=== PATIENT | male | born 1975 | race African-American/Black ===

== ENCOUNTER 2018-11-12 14:16 | Inpatient (IN) | payer SELFPAY ==
[2018-11-12] MEDS ORDERED: Ketorolac Tromethamine 60 MG/2 ML VIAL ONE (14:33)
[2018-11-12 15:20] LABS: Anion Gap 13 mmol/L (10-20); BUN (Urea Nitrogen) 15 mg/dL (8.9-20.6); Calc. Creatinine Clearance 0 mL/min (70-130); Calcium 9.5 mg/dL (7.8-10.44); Carbon Dioxide 20 mmol/L (22-29); Chloride 110 mmol/L (98-107); Estimated GFR-MDRD Greater than 90; Glucose 96 mg/dL (70-105); Potassium 4.3 mmol/L (3.5-5.1); Sodium 139 mmol/L (136-145)
[2018-11-12 15:43] LABS: CKMB 1.7 ng/mL (0-6.6)
[2018-11-12] MEDS ORDERED: Senokot S 8.6-50 MG TAB PO PRN (17:13)
[2018-11-12] MEDS ORDERED: HYDROcodone/Acetaminophen 5/325 mg Tablet PO PRN (17:13)
[2018-11-12] MEDS ORDERED: Acetaminophen 325 MG TAB PO PRN (17:13)
[2018-11-12] MEDS ORDERED: Lorazepam 1 MG TAB PO PRN (17:18)
[2018-11-12 18:18] LABS: Troponin I 0.052 ng/mL (< 0.028)
[2018-11-12 18:33] LABS: CKMB 1.6 ng/mL (0-6.6)
[2018-11-12] MEDS: Famotidine 20 MG TAB PO SCH (20:28)
[2018-11-12] MEDS: Enoxaparin Sodium 100 MG/ML SYRINGE SC SCH (20:28)
[2018-11-12] MEDS: Nicotine 14 MG PATCH TD SCH (20:28)
[2018-11-12 21:11] VITALS: BMI 31.9
[2018-11-12 21:28] LABS: Troponin I 0.077 ng/mL (< 0.028)
[2018-11-12] MEDS: Diltiazem 125 MG in Sodium Chloride 0.9% 100 ML IVPB SCH (22:06)
--- NOTE | 2018-11-13 02:44 | HP ---
PRIMARY CARE PROVIDER: None. CHIEF COMPLAINT: Shortness of breath. HISTORY OF PRESENT ILLNESS: The patient is a 43-year-old male who came to the ER complaining of shortness of breath for 7 days. Reports feeling heart palpitations this morning and that is what brought him into the ER. The patient denies any other associated symptoms. No chest pain. No cough. No diaphoresis. PAST MEDICAL HISTORY: Significant for murmur, the patient said he has had since he was young with no followup. PAST SURGICAL HISTORY: Unremarkable. SOCIAL HISTORY: The patient says he drinks 6 beers daily. Smokes one pack per day x25 years. Denies any illicit drug use. FAMILY HISTORY: He denies any significant family history. PSYCHIATRIC HISTORY: Unremarkable. ALLERGIES: THE PATIENT SAYS HE HAS NO KNOWN ALLERGIES. HOME MEDICATIONS: The patient is not taking any home medications at this time. REVIEW OF SYSTEMS: VITAL SIGNS: Temperature 98.1, blood pressure 105/78, pulse 79, respirations 22, the patient is 96% on room air. CONSTITUTIONAL: Denies fever or chills. General malaise. HEENT: Denies sore throat. RESPIRATORY: Denies cough. Significant for shortness of breath. CARDIAC: Denies chest pain. Reports palpitation. Denies dyspnea on exertion. GI: Denies abdominal pain, nausea, vomiting, diarrhea. EXTREMITIES: Denies any lower extremity swelling or pain. NEUROLOGIC: Denies headache. Denies dizziness. SKIN: Denies any new rashes. PERTINENT LABORATORY DATA: Sodium 139, potassium 4.3, chloride 110, carbon dioxide 20, anion gap 13, BUN is 15, creatinine is 1.02. Estimated GFR greater than 90%. Glucose is 96, calcium 9.5. Troponin, first troponin was 0.068, second was 0.052, and third troponin was 0.064. CK-MB 1.7, and second CK-MB was 1.6. TSH 1.0248. EKG showed Afib. ASSESSMENT AND PLAN: 1. Atrial fibrillation. This is new onset atrial fibrillation for the patient. The patient was placed on a Cardizem drip at 10 mL per hour and given a bolus of 20 mg IV push. The patient was given 1 mg/kg of Lovenox. We are going to do Cardiology consults. 2. Gastrointestinal and deep venous thrombosis prophylaxis. 3. Hospital course is dependent on clinical findings. PHYSICAL EXAMINATION: VITAL SIGNS: Temperature 98.1, blood pressure 105/78, pulse 79, respiratory rate is 22. The patient is 96% on room air. CONSTITUTIONAL: Head is atraumatic and normocephalic. HEENT: Eyes A. Nose, nares are clear. Throat, posterior oropharynx is clear. Uvula midline. NECK: Supple. Trachea midline. No thyromegaly. RESPIRATORY: Lungs clear to auscultation bilaterally. Good air movement bilaterally. No adventitious lung sounds. No rales, rhonchi, or wheezes heard. CARDIOVASCULAR: S1, S2 are appreciated. No murmurs, rubs, or gallops. GI: Abdomen is soft, nontender. No hepatosplenomegaly. EXTREMITIES: Pedal pulses 2+. No edema. NEUROLOGICAL: Cranial nerves 2 to 7 intact. Strength 5/5 to the extremities. Sensation intact. Nonfocal exam. INTEGUMENTARY: No rashes. No new lesions. Job ID: [id number]
[2018-11-13 05:47] LABS: #Basophils 0.1 thou/uL (0.0-0.2); #Eosinphils 0.2 thou/uL (0.0-0.7); #Lymphocytes 2.7 thou/uL (1.20-3.40); #Monocytes 0.8 thou/uL (0.11-0.59); #Neutrophils 3.9 thou/uL (1.40-6.50); %Basophils 1.1 % (0.0-1.0); %Eosinophils 2.6 % (0.0-10.0); %Lymphocytes 35.6 % (21.0-51.0); %Monocytes 10.3 % (0.0-10.0); %Neutrophils 50.3 % (42.0-75.0); Hemoglobin 13.4 g/dL (14.0-18.0); Mean Corpuscular HGB CONC 32.3 g/dL (32.0-36.0); Mean Corpuscular Hemoglobin 23.3 pg (27.0-31.0); Mean Corpuscular Volume 72.1 fL (78.0-98.0); Mean Platelet Volume 8.3 fL (7.4-10.4); Platelet Count 262 thou/uL (130-400); Red Blood Cell (RBC) Count 5.73 mill/uL (4.70-6.10); White Blood Cell (WBC) Count 7.7 thou/uL (4.8-10.8)
[2018-11-13 06:03] LABS: ALT (SGPT) 98 U/L (8-55); AST (SGOT) 43 U/L (5-34); Albumin 4.2 g/dL (3.5-5.0); Alkaline Phosphatase 56 U/L (40-150); Anion Gap 11 mmol/L (10-20); BUN (Urea Nitrogen) 17 mg/dL (8.9-20.6); Bilirubin, Total 0.9 mg/dL (0.2-1.2); Calc. Creatinine Clearance 121 mL/min (70-130); Calcium 9.5 mg/dL (7.8-10.44); Carbon Dioxide 22 mmol/L (22-29); Chloride 111 mmol/L (98-107); Estimated GFR-MDRD 90; Globulin 2.4 g/dL (2.4-3.5); Glucose 114 mg/dL (70-105); Potassium 4.2 mmol/L (3.5-5.1); Protein, Total 6.6 g/dL (6.0-8.3); Sodium 140 mmol/L (136-145)
[2018-11-13] MEDS: Enoxaparin Sodium 100 MG/ML SYRINGE SC SCH ×2 (08:55→20:10)
[2018-11-13] MEDS: Famotidine 20 MG TAB PO SCH ×2 (08:57→20:10)
[2018-11-13] MEDS ORDERED: Digoxin 0.5 MG/2 ML AMP SLOW IVP SCH (11:00)
--- NOTE | 2018-11-13 13:43 | PRG ---
DATE OF SERVICE: 11/13/2018 SUBJECTIVE: The patient is seen and examined at the bedside. He is feeling good. He does not have much complaints to offer. He does not have any chest pain. OBJECTIVE: VITAL SIGNS: Blood pressure is 151/97, pulse is 65, temperature is 98.0, respirations are 18, O2 saturation is 93% on room air. HEENT: His head is atraumatic and normocephalic. Eyes are PERRLA. Sclerae are nonicteric. Oral mucosa is moist. NECK: Supple. No lymphadenopathy. Thyroid is not palpable. LUNGS: Clear. HEART: S1 and S2. Irregularly irregular. No S3. No S4. ABDOMEN: Soft, nontender. Bowel sounds are present. No organomegaly. EXTREMITIES: No clubbing, cyanosis, or edema. NEUROLOGICAL: He is alert and oriented x4. There is no any motor or sensory deficit. LABORATORY DATA: Labs showed white count of 7.7, hemoglobin 13.4, hematocrit 41.3, platelet count is 262,000. Sodium of 140, potassium 4.2, chloride 111, CO2 of 22, BUN 17, creatinine 1.08, glucose 114, AST 43, ALT 98, alkaline phosphatase 56. Troponins 0.068, 0.064, and 0.077. Normal CK-MBs and normal rest of the chemistry. IMPRESSION: 1. New onset atrial fibrillation, most likely related to alcohol and drugs. The patient is on Cardizem drip. His rate is controlled at this point. He was started on Lovenox 1 mg/kg q.12 hours subcutaneously. Cardiology is seeing the patient. Echo is supposed to be done and read. 2. Elevated liver function test with typical 2:1 ratio of ALT to AST typical for alcoholic liver disease. 3. Elevated troponins secondary to new onset atrial fibrillation most likely. 4. Microcytic anemia. Check his iron studies and he might need to have scoping done for now, we will continue current regimen and we will make sure that he is not bleeding internally since he is on high dose of Lovenox. Job ID: [id number]
--- NOTE | 2018-11-13 14:37 | CON ---
DATE OF CONSULTATION: 11/13/2018 INDICATION FOR CONSULTATION: A 43-year-old patient who was seen in the emergency room yesterday in [place] and was noted to be in atrial fibrillation with rapid ventricular response, was sent to our facility. 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 He noticed lately he has been having some coughing. He noticed that his heart rate was irregular and fast and became short of breath. He had no chest pain. He was in the emergency room, was noted to be in atrial fibrillation. He presented here. He does have a history of tobacco abuse, but no other risk factors for coronary artery disease. His EKG did not show any evidence of ischemia. PAST MEDICAL HISTORY: His past medical history is unremarkable for any operations or illnesses. He has been otherwise healthy person until he developed the atrial fibrillation with the rapid heart rate. He did not have any significant evidence of ischemia. He does have decreased R-wave progression; however, in V1 through V3 and some nonspecific T-wave changes. His thyroid function appeared to be normal. His cardiac enzymes were indeterminate, but troponin I was 0.068 and has increased up to 0.077. This maybe due to demand ischemia associated with the tachycardia and it could be diagnosed as a non-ST segment elevation myocardial infarction type 2. Otherwise, he has remained stable. Today, he is feeling better. He has had some episodes of intermittent sinus rhythm and then converted back to the atrial fibrillation. At times, appears to be possibly atrial flutter. He is on IV diltiazem and the rate is under relatively good control at this time. We will continue these medications for the time being. His blood pressure also was somewhat elevated. We will need to control the blood pressure. We will increase the diltiazem. We will also add medicines as needed for the hypertension. SOCIAL HISTORY: He has a significant other. He has 1 child who is 8-year-old with no heart problems. He smoked a pack a day for 25 years. Continues to smoke. Drinks 6 to 8 beers a day, but drink more in the weekend. He works in a service station. FAMILY HISTORY: Unremarkable for any early heart disease. MEDICATIONS: Prior to admission include TheraFlu, Mucinex, and NyQuil. ALLERGIES: NONE. REVIEW OF SYSTEMS: A 12-point review of systems is unremarkable, except for the history of smoking. PHYSICAL EXAMINATION: GENERAL: Reveals a very pleasant, well-developed, well-nourished gentleman, in no acute distress. VITAL SIGNS: His blood pressure earlier was 135/76, this has increased up to 170/94; heart rate at the time of blood pressure 135, was 108, it is now down to 67, which still shows atrial fibrillation. The rate is under good control. He is afebrile. Respiratory rate is 18. HEENT: Shows the head to be normocephalic and atraumatic. NECK: Carotid pulses are present. There are no bruits. CHEST: Clear to auscultation without rales, rhonchi, or wheezing. CARDIOVASCULAR: Does reveal an irregular rhythm at this time, somewhat tachycardic, but no gross murmurs, heaves, thrills, bruits, or rubs are noted. ABDOMEN: Soft, flat, and nontender. Positive bowel sounds are present. No organomegaly, masses, or tenderness noted. EXTREMITIES: Showed no clubbing, cyanosis, or edema. Pedal pulses are present. NEUROLOGIC: He appears to be intact. He has normal strength and normal tone. SKIN: Warm and dry. IMAGING STUDIES: EKG shows an atrial fibrillation and possible atrial flutter, decreased R-wave progression in V1 through V3, which could indicate old anterior myocardial infarction with some T-wave inversions in the lateral leads as well as inferiorly. His cardiac enzymes are also slightly indeterminate. IMPRESSION: 1. Atrial fibrillation and possibly flutter with a rapid ventricular response. The etiology of the atrial flutter, I have discussed with him about the alcohol. If he has significant amount of alcohol over the weekend more than usual and also was taking NyQuil and TheraFlu, this may have caused him to develop the atrial fibrillation. He has gone in and out of the atrial fibrillation at this time. We will continue the diltiazem. I will obtain an echocardiogram for evaluation of the left ventricular systolic function and chamber dimensions. 2. History of tobacco abuse. He has been absolutely stable. He needs to stop smoking. 3. Increased alcohol use. He also need to stop drinking. I suggest that he drink maybe 1 to 2 beers a day maximum. 4. History of recent coughing. This maybe due to congestive heart failure. However, we will need to obtain further evaluation by echocardiogram. For the time being, we will continue the diltiazem. If he has been found to have more episodes of flutter, he may need to undergo an ablation for the atrial flutter and then continue medications for the atrial fibrillation. If once we evaluate the echocardiogram, then further recommendations will follow. He may need to eventually be seen by Electrophysiology for a possible ablation. He also at some point in time, will need to undergo stress testing to rule out evidence of underlying ischemia depending on the results of the echocardiogram. He could either undergo stress testing or may actually he need to undergo cardiac catheterization for further evaluation. 5. Daily marijiuna use and history of cocaine abuse in the past. Request urine drug screen. 6. Abnormal EKG : possible old anterior WI. Pt. may have CMY . Await echo results. Job ID: [id number] MTDD
[2018-11-13 15:12] LABS: Hemoglobin 13.7 g/dL (14.0-18.0)
[2018-11-13 15:30] LABS: Iron 90 ug/dL (65-175); Iron Binding Capacity, Total 438 mcg/dL (261-462)
[2018-11-13] MEDS: Carvedilol 3.125 MG TAB PO SCH (16:53)
[2018-11-13] MEDS ORDERED: Communication Order-Pharmacy FS SCH (19:00)
[2018-11-13] MEDS: Nicotine 14 MG PATCH TD SCH (20:09)
[2018-11-13] MEDS: Diltiazem 125 MG in Sodium Chloride 0.9% 100 ML IVPB SCH (22:04)
[2018-11-14] MEDS: Carvedilol 3.125 MG TAB PO SCH ×2 (06:03→17:05)
[2018-11-14] MEDS: Lisinopril 5 MG TAB PO SCH (06:03)
[2018-11-14] MEDS: Famotidine 20 MG TAB PO SCH ×2 (06:04→20:14)
[2018-11-14 06:40] LABS: #Basophils 0.1 thou/uL (0.0-0.2); #Eosinphils 0.1 thou/uL (0.0-0.7); #Monocytes 0.8 thou/uL (0.11-0.59); #Neutrophils 6.9 thou/uL (1.40-6.50); %Basophils 0.8 % (0.0-1.0); %Eosinophils 1.4 % (0.0-10.0); %Lymphocytes 27.4 % (21.0-51.0); %Monocytes 7.6 % (0.0-10.0); %Neutrophils 62.8 % (42.0-75.0); Hemoglobin 13.9 g/dL (14.0-18.0); Mean Corpuscular HGB CONC 32.3 g/dL (32.0-36.0); Mean Corpuscular Hemoglobin 23.6 pg (27.0-31.0); Mean Corpuscular Volume 73.1 fL (78.0-98.0); Mean Platelet Volume 8.9 fL (7.4-10.4); Platelet Count 268 thou/uL (130-400); RBC Distribution Width 14.2 % (11.5-14.5); Red Blood Cell (RBC) Count 5.88 mill/uL (4.70-6.10)
[2018-11-14 07:07] LABS: ALT (SGPT) 84 U/L (8-55); AST (SGOT) 24 U/L (5-34); Albumin 4.3 g/dL (3.5-5.0); Alkaline Phosphatase 62 U/L (40-150); Anion Gap 14 mmol/L (10-20); BUN (Urea Nitrogen) 14 mg/dL (8.9-20.6); Bilirubin, Total 1.6 mg/dL (0.2-1.2); Calc. Creatinine Clearance 119 mL/min (70-130); Calcium 9.8 mg/dL (7.8-10.44); Carbon Dioxide 22 mmol/L (22-29); Chloride 108 mmol/L (98-107); Estimated GFR-MDRD 88; Globulin 2.7 g/dL (2.4-3.5); Glucose 101 mg/dL (70-105); Potassium 3.9 mmol/L (3.5-5.1); Sodium 140 mmol/L (136-145)
--- NOTE | 2018-11-14 07:57 | CON ---
DATE OF CONSULTATION: 11/13/2018 ADDENDUM: Please add an addendum to the H and P. Mr. Guadalupe admits to using marijuana on a daily basis. He did have a history of using cocaine in the past of several years ago. This may be the etiology of the abnormal EKG. He could possibly suffered an myocardial infarction in the past and had been unaware of it. The echocardiogram is still pending. We will review this and further recommendations will follow. Job ID: [id number]
[2018-11-14] MEDS: Diltiazem 125 MG in Sodium Chloride 0.9% 100 ML IVPB SCH (10:07)
--- NOTE | 2018-11-14 14:30 | PRG ---
DATE OF SERVICE: 11/14/2018 SUBJECTIVE: The patient is seen and examined at the bedside. He is feeling better. There was no any unexpected events overnight. OBJECTIVE: VITAL SIGNS: Blood pressure is 123/78, pulse is 85, temperature is 98.3, respiratory rate is 18, O2 saturation is 95% on room air. HEENT: His head is atraumatic and normocephalic. Eyes are PERRLA. Sclerae are nonicteric. Oral mucosa is moist. NECK: Supple. LUNGS: Clear except for the bases, where he has a few crackles bilaterally. No wheezing. HEART: S1, S2, somewhat distant. No S3. No S4. Somewhat irregular. No murmur. ABDOMEN: Soft and nontender. EXTREMITIES: No clubbing, cyanosis, or edema. NEUROLOGICAL: He follows my commands. He moves his all 4 extremities. There is no any sensory or motor deficits present. Cranial nerves are intact. LABORATORY DATA: Labs showed white count of 11.0, hemoglobin of 13.9, hematocrit 43.0, platelet count is 268. Sodium of 140, potassium 3.9, chloride 108, CO2 of 22, BUN 14, creatinine 1.10, glucose 101, calcium 9.8, ferritin 442.07, total iron binding capacity is 438, and iron is 90. Total bilirubin 1.6, AST 24, ALT 84, alkaline phosphatase 62, and the rest of chemistry is within normal limits. showed atrial fibrillation/flutter. Ejection fraction of the left ventricle is estimated at 15% to 20%. There is moderately increased left ventricular size and probable diastolic dysfunction, which is difficult to assess since he is in atrial fibrillation. The left atrium is moderately dilated and the right ventricular cavity is mildly enlarged and right atrium is mildly enlarged along with moderate mitral regurgitation, moderate to severe tricuspid regurgitation and mild pulmonic regurgitation. IMPRESSION: 1. New onset of atrial fibrillation and is still in atrial fibrillation. This time, he is rate controlled. He is on Cardizem drip. Cardiology will make decision about the next step, although there is some plan to get religious education teacher involved in this case. We will continue his full anticoagulation with Lovenox. 2. Elevated liver function test, which is most likely related to alcohol use. 3. Elevated troponins, most likely secondary to atrial fibrillation. 4. Microcytic anemia with iron studies suggestive of normal iron level and normal iron stores. We are still waiting for hemoglobin electrophoresis for further evaluation of his microcytic anemia. PLAN: To continue current regimen and Cardiology will make decision about the next step. Yesterday, he was started on carvedilol and lisinopril. His blood pressure is improved, and he has Nicoderm patch 14 mg daily. Job ID: [id number]
[2018-11-14 14:31] LABS: Amphetamine Not Detected (NotDetected); Barbiturates Screen Not Detected (NotDetected); Benzodiazepine Screen Detected (NotDetected); Cocaine Metabolite Screen Not Detected (NotDetected); Medtox Control Line Valid? VALID (VALID); Medtox Reader # READER 4; Methadone Not Detected (NotDetected); Methamphetamine Not Detected (NotDetected); Opiate Screen Not Detected (NotDetected); Oxycodone Screen Not Detected (NotDetected); Phencyclidine (PCP) Not Detected (NotDetected); THC/Cannabinoid Screen Detected (NotDetected); Tricyclic Screen Not Detected (NotDetected)
[2018-11-14] MEDS ORDERED: Verapamil 5 MG/2 ML VIAL ONE (15:44)
[2018-11-14] MEDS ORDERED: Nitroglycerin 100MG/250ML BOT 250 ML ONE (15:44)
[2018-11-14] MEDS ORDERED: Heparin 10,000 UNITS/1 ML VIAL ONE (15:44)
--- NOTE | 2018-11-14 16:02 | PDOC.CTH ---
Cardiology Progress Note - Subjective EP PROGRESS NOTE: 11/14/18 Patient seen and evaluated. No new cardiac concerns or complaints today. Denies heart racing, palpitations, chest pain/pressure, dizziness, or passing out. No stroke like symptoms. - Objective Vital Signs Temp Pulse Resp BP Pulse Ox 11/14/18 11:21 98.3 F 85 18 123/78 95 11/14/18 07:38 98.9 F 72 18 124/78 96 11/14/18 07:35 95 Weight 216 lb 5 oz 11/13/18 11/14/18 11/15/18 06:59 06:59 06:59 Intake Total 995 Output Total 1125 Balance -130 - Physical Examination General/Neuro: alert & oriented x3, NAD Neck: carotid US brisk, no JVD present Lungs: CTA, unlabored respirations Heart: PMI normal, RRR Abdomen: NT/ND, soft - Telemetry Telemetry Rhythm: SR - Labs Result Diagrams: 11/14/18 05:57 11/14/18 05:57 Troponin/CKMB CK-MB (CK-2) 1.6 ng/mL (0-6.6) 11/12/18 17:45 Troponin I 0.077 ng/mL (< 0.028) H 11/12/18 20:48 - Assessment/Plan 1. Atrial fibrillation with RVR - coarse Afib seen on tele. 2. CHADS2-VASC: 1 (for HF) - with severely reduced EF I still recommend OAC with Eliquis 5mg PO BID 3. Systolic heart failure - EF ~20% - newly diagnosed, likely tachycardia mediated Short term amiodarone suppressing and standard heart failure management. Reassess EF in 3 months. Consider ICD if EF remains </=35%. If recurrent arrhythmias seen after amiodarone is stopped in 3-4 months, can consider ablation at that time.
[2018-11-14] MEDS ORDERED: Nitroglycerin 0.4 MG TAB (25 Tab Bottle) SL PRN (16:22)
[2018-11-14] MEDS ORDERED: Sodium Chloride 0.9% 200 ML IV PRN (16:22)
[2018-11-14] MEDS ORDERED: Acetaminophen/Codeine 30-300mg Tablet PO PRN ×2 (16:22)
[2018-11-14] MEDS ORDERED: Amiodarone 200 MG TAB PO SCH (16:30)
[2018-11-14] MEDS: Apixaban 5 MG TAB PO SCH (20:13)
[2018-11-14] MEDS: Amiodarone 200 MG TAB PO SCH (20:13)
[2018-11-14] MEDS: Nicotine 14 MG PATCH TD SCH (20:13)
[2018-11-15 07:42] VITALS: TEMP 97.7
[2018-11-15] MEDS: Apixaban 5 MG TAB PO SCH (08:10)
[2018-11-15] MEDS: Amiodarone 200 MG TAB PO SCH (08:10)
[2018-11-15] MEDS: Lisinopril 5 MG TAB PO SCH (08:10)
[2018-11-15] MEDS: Carvedilol 3.125 MG TAB PO SCH (08:10)
[2018-11-15] MEDS: Famotidine 20 MG TAB PO SCH (08:10)
--- NOTE | 2018-11-15 08:20 | PDOC.PN ---
- Subjective Encounter Start Date: 11/15/18 Encounter Start Time: 08:20 - Objective Resuscitation Status - Order Detail: 11/12/18 17:13 Resuscitation Status Routine Co-Sign Provider: Resuscitation Status: FULL: Full Resuscitation Discussed with: patient Additional comments: Mother is surrogate decision maker Vital Signs & Weight: Vital Signs (12 hours) Temp Pulse Resp BP BP BP Pulse Ox 11/15/18 07:36 97.7 F 99 20 123/88 98 11/15/18 04:00 136/91 H 11/15/18 03:43 97.9 F 61 22 H 136/91 H 97 11/14/18 23:15 98.1 F 113 H 18 116/81 116/81 97 Weight Weight 216 lb 5 oz I&O: 11/14/18 11/15/18 11/16/18 06:59 06:59 06:59 Intake Total 995 720 Output Total 1125 1040 Balance -130 -320 Result Diagrams: 11/14/18 05:57 11/14/18 05:57 Dx/Plan - Plan * . Review of Systems - Medications/Allergies Allergies/Adverse Reactions: Allergies Allergy/AdvReac Type Severity Reaction Status Date / Time No Known Allergies Allergy Unverified 11/12/18 17:56 Medications: Current Medications Acetaminophen (Tylenol) 650 mg PO Q4H PRN PRN Reason: Headache/Fever/Mild Pain (1-3) Acetaminophen/Codeine Phosphate (Tylenol #3) 1 tab PO Q4H PRN PRN Reason: Mild Pain (1-3) Acetaminophen/Codeine Phosphate (Tylenol #3) 2 tab PO Q4H PRN PRN Reason: Moderate Pain (4-6) Hydrocodone Bitart/Acetaminophen ([place] 5/325) 1 tab PO Q4H PRN PRN Reason: Moderate Pain (4-6) Amiodarone HCl (Cordarone) 400 mg PO TID [facility] Last Admin: 11/15/18 08:10 Dose: 400 mg Apixaban (Eliquis) 5 mg PO BID [facility] Last Admin: 11/15/18 08:10 Dose: 5 mg Aspirin (Ecotrin) 81 mg PO DAILY [facility] Last Admin: 11/15/18 08:10 Dose: 81 mg Carvedilol (Coreg) 3.125 mg PO BID[facility] Last Admin: 11/15/18 08:10 Dose: 3.125 mg Famotidine (Pepcid) 20 mg PO BID [facility] Last Admin: 11/15/18 08:10 Dose: 20 mg Sodium Chloride (Normal Saline 0.9%) 200 mls @ 0 mls/hr IV ONE PRN PRN Reason: SBP < 90 Stop: 11/17/18 16:23 Lisinopril (Zestril) 5 mg PO DAILY [facility] Last Admin: 11/15/18 08:10 Dose: 5 mg Lorazepam (Ativan) 1 mg PO Q4H PRN PRN Reason: Anxiety/Agitation Last Admin: 11/13/18 22:07 Dose: 1 mg Nicotine (Nicoderm Patch) 14 mg TD Q24HR [facility] Last Admin: 11/14/18 20:13 Dose: 14 mg Nitroglycerin (Nitrostat) 0.4 mg SL Q5MIN PRN PRN Reason: Chest Pain Senna/Docusate Sodium (Senokot S) 2 tab PO BIDPRN PRN PRN Reason: Constipation Sodium Chloride (Flush - Normal Saline) 10 ml IVF PRN PRN PRN Reason: Saline Flush
[2018-11-15] MEDS ORDERED: Aspirin 81 mg Enteric Coated Tablet PO SCH (09:00)
--- NOTE | 2018-11-15 09:54 | PDOC.CTH ---
Cardiology Progress Note - Subjective The pt seen and examined. No overnight events. No cardiac complaints. - Objective Vital Signs Temp Pulse Resp BP BP BP Pulse Ox 11/15/18 08:10 98 11/15/18 07:36 97.7 F 99 20 123/88 98 11/15/18 04:00 136/91 H 11/15/18 03:43 97.9 F 61 22 H 136/91 H 97 11/14/18 23:15 98.1 F 113 H 18 116/81 116/81 97 Weight 216 lb 5 oz 11/14/18 11/15/18 11/16/18 06:59 06:59 06:59 Intake Total 995 720 Output Total 1125 1040 Balance -130 -320 - Physical Examination General/Neuro: alert & oriented x3 Neck: no JVD present Lungs: CTA Heart: other: (irregular) Abdomen: soft Extremities: other: (No edema) - Telemetry Telemetry Rhythm: AFib with HR 110-120s - Labs Result Diagrams: 11/14/18 05:57 11/14/18 05:57 Troponin/CKMB CK-MB (CK-2) 1.6 ng/mL (0-6.6) 11/12/18 17:45 Troponin I 0.077 ng/mL (< 0.028) H 11/12/18 20:48 - Assessment/Plan 1. Atrial fibrillation with RVR - coarse Afib with HR 110-120s. Will increase Coreg from 3.125mg to 6.25mg BID. On Amiodarone 400mg TID since yesterday. Eliquis 5mg BID for severely reduced EF although his CHADS2-VASC is 1 (for HF). 2. Acute on Chronic Systolic HF with EF 15-20% - S/p C on 11/14/2018 with normal coronaries. Will D/c with LifeVest. 3. Anemia 4. Tobacco and ETOH abuse - smoking and ETOH cessation education given to the pt. MAR reviewed * Short term amiodarone suppressing and standard heart failure management. Reassess EF in 3 months. Consider ICD if EF remains </=35%. If recurrent arrhythmias seen after amiodarone is stopped in 3-4 months, can consider ablation at that time. * Amiodarone 400mg TID for 2wks, 400mg BID for 2wks, 200mg BID for 2wks, then 200mg qd * From Cardiac standpoint, the pt is stable to D/C home once he receive LifeVest. The pt will f/u with Dr Martinez' office within 2-4 wks. Pt. seen and eval. by me. I agree with the A/P by the FLOOR BROKER. He says that he may not be able to pay for the Life-Vest.He is stable for d/c today. He will need to f/u with my office in the next few weeks. He should also be set up with the CHF clinic. Review of Systems - Review of Systems Constitutional: reports: no symptoms reported EENTM: reports: no symptoms reported Respiratory: reports: no symptoms reported Cardiac (ROS): reports: no symptoms reported ABD/GI: reports: no symptoms reported : reports: no symptoms reported Musculoskeletal: reports: no symptoms reported
[2018-11-15] MEDS ORDERED: Amiodarone 200 MG TAB PO SCH ×3 (10:03→15:00)
[2018-11-15] MEDS ORDERED: Carvedilol 3.125 MG TAB PO SCH ×3 (10:30→17:00)
[2018-11-15 11:08] VITALS: BP 109/74
[2018-11-15 16:10] LABS: Hemoglobin A 95.8 % (96.4-98.8); Hemoglobin A2 4.2 % (1.8-3.2); Hemoglobin F 0 % (0.0-2.0); Interpretation Note: (.)
[2018-11-15] MEDS ORDERED: Carvedilol 6.25 MG TAB PO SCH (17:00)
--- NOTE | 2018-11-16 05:22 | DIS ---
DATE OF ADMISSION: 11/12/2018 DATE OF DISCHARGE: 11/15/2018 CONDITION: At the time of discharge, stable and improved. DISCHARGE DISPOSITION: Home. PRIMARY CARE PHYSICIAN: None. The patient is instructed to follow up with [facility]. DISCHARGE DIAGNOSES: 1. Atrial fibrillation with RVR. 2. Acute on chronic systolic congestive heart failure with ejection fraction of 15% to 20%. 3. Chronic anemia. 4. Alcohol, tobacco, and history of cocaine abuse. 5. Non-ischemic cardiomyopathy, suspected alcoholic. DISCHARGE MEDICATIONS: 1. Aldactone 25 mg daily. 2. Nicotine patch 14 mg daily. 3. Lisinopril 5 mg daily. 4. Carvedilol 6.25 mg p.o. b.i.d. 5. Aspirin 81 mg daily. 6. Eliquis 5 mg p.o. b.i.d. 7. Amiodarone 400 mg three times a day for two weeks, then 400 mg two times a day for two weeks, then 200 mg two times a day for two weeks, then 200 mg daily. Prescription is written as such. PROCEDURES DONE IN THE HOSPITAL: 1. Transthoracic echocardiogram which shows EF of 15% to 20% and [id number] tricuspid regurgitation, moderate mitral regurgitation, and atrial fibrillation. 2. Cardiac catheterization which shows normal coronaries, but EF of approximately 15%. IN-HOUSE CONSULTATIONS: 1. Cardiology, Dr. Martinez. 2. Electrophysiology, Dr. Melissa. HISTORY OF PRESENTING ILLNESS: Mr. Guadalupe is a 43-year-old Afro-[place] male with past medical history significant for not much except for a murmur, who smokes a pack per day for 25 years and drinks heavily beer every day, and has a history of cocaine abuse, nothing current, who came to the emergency room with complaints of shortness of breath for 7 days and palpitations on the day of presentation. In the emergency room, his troponin was 0.068 and 2nd was 0.058, 3rd was 0.064. EKG showed atrial fibrillation and heart rate was tachycardic. He was admitted with a new diagnosis of atrial fibrillation with RVR and was started on Cardizem drip and was started on Lovenox b.i.d. dosing as well. Please see admission history dictated by Pippa Faria, nurse practitioner, on 11/12/2018. Cardiology was consulted and echo was ordered. Cardiology, Dr. Martinez, saw the patient and his echo showed poor EF. He underwent cardiac catheterization which showed normal coronaries. It was thought that most likely his symptoms are due to alcoholic versus other type of nonischemic cardiomyopathy. For his atrial fibrillation, he was weaned off Cardizem drip and was started on amiodarone by Cardiology at a tapering dose. He was also started on oral anticoagulation because of extensive risk of stroke given his poor EF. He was also started on beta-earnest and lisinopril for cardiomyopathy as well as for atrial fibrillation in terms of beta blockers. With optimal medical management, his vitals became stable. He was not tachycardic anymore. Blood pressure was stable. [facility] was recommended, but unfortunately the patient was not able to afford it. [facility] customer contact representative will follow the patient up in the home setting. [facility] was consulted with regard to medication prescription help. Once that is arranged, the patient is stable for discharge. Cardiology has cleared him for discharge as well. He was also evaluated by Dr. Melissa for atrial fibrillation, who recommended Eliquis and AICD in 3 months if his EF remains less than 35. He was seen and examined prior to discharge. PHYSICAL EXAMINATION: VITAL SIGNS: This morning vital signs, temperature 97.7, pulse of 92, respirations 22, saturating 95% on room air, blood pressure 109/74. GENERAL: No acute distress. Awake, alert, and oriented x3. CHEST: Clear to auscultation bilaterally. HEART: Irregularly irregular. EXTREMITIES: No edema. DISCHARGE PLAN: Discharge plan was discussed with the patient who verbalized understanding. Extensive counseling was provided about medication compliance, and alcohol, tobacco, and drug abstinence. He is instructed to follow up with one of the free clinics in the community. He is also strongly encouraged to follow up with Dr. Martinez for continued care and repeat echo in 3 months. He is instructed to follow her up in 2 to 3 weeks. Outpatient cardiac rehab referral was also made for him. Job ID: [id number]
== END 2018-11-15 14:34 | disposition home or self-care (01) | DRG 286 ==
LOC: ERS 14:16 → 2NO 15:50
PROVIDERS: ADMIT Internal Medicine; ATTEND Internal Medicine
PROC: 4A023N7 Measurement of Cardiac Sampling and Pressure, Left Heart, Percutaneous Approach (ICD-10-PCS; principal; 2018-11-12)
PROC: B2151ZZ Fluoroscopy of Left Heart using Low Osmolar Contrast (ICD-10-PCS; 2018-11-12)
PROC: B2111ZZ Fluoroscopy of Multiple Coronary Arteries using Low Osmolar Contrast (ICD-10-PCS; 2018-11-12)
DX: I48.91 Unspecified atrial fibrillation (principal); I50.23 Acute on chronic systolic (congestive) heart failure; F12.10 Cannabis abuse, uncomplicated; F17.210 Nicotine dependence, cigarettes, uncomplicated; D64.9 Anemia, unspecified
CPT/HCPCS: 36415; 80053; 80306; 82274; 82553; 82728; 83021; 83540; 83550; 84443; 85025; 93005; 93306; 93458; 93798; 94760; 96365; 96366; C1769; J1160; J1644; J1650; J1885; J3490

== ENCOUNTER 2019-12-12 15:23 | Inpatient (IN) | payer SELFPAY ==
[2019-12-12] MEDS ORDERED: D5 1/2 NS w/20 mEq KCL 1,000 ML IV SCH (16:15)
[2019-12-12 16:18] LABS: Anion Gap 11 mmol/L (10-20); BUN (Urea Nitrogen) 15 mg/dL (8.9-20.6); Calc. Creatinine Clearance 0 mL/min (70-130); Calcium 7.8 mg/dL (7.8-10.44); Carbon Dioxide 21 mmol/L (22-29); Chloride 106 mmol/L (98-107); Estimated GFR-MDRD 87; Glucose 241 mg/dL (70-105); Potassium 3.6 mmol/L (3.5-5.1); Sodium 134 mmol/L (136-145)
[2019-12-12] MEDS ORDERED: Dextrose 50% Abboject 50 ML SYRINGE SLOW IVP PRN (16:18)
[2019-12-12] MEDS ORDERED: Dextrose 5% in Water 1,000 ML IV PRN (16:18)
[2019-12-12] MEDS ORDERED: Senokot S 8.6-50 MG TAB PO PRN (16:19)
[2019-12-12] MEDS ORDERED: Calcium Carbonate 500 MG ChewTAB PO PRN (16:19)
[2019-12-12] MEDS ORDERED: NS 0.9% w/ 20 MEQ KCL 1,000 ML/1,000 ML BAG IV SCH (16:30)
[2019-12-12] MEDS ORDERED: Sodium Chloride 0.9% 1,000 ML IV SCH (16:30)
[2019-12-12 16:36] LABS: Magnesium 1.7 mg/dL (1.6-2.6)
[2019-12-12 16:39] LABS: Phosphorus 1.8 mg/dL (2.3-4.7)
[2019-12-12 16:42] LABS: Troponin I Less than 0.010 ng/mL (< 0.028)
[2019-12-12] MEDS ORDERED: NPH, Human Insulin Isophane 300 UNIT/3 ML VIAL SC SCH (16:45)
--- NOTE | 2019-12-12 16:48 | RAD ---
PORTABLE CHEST ONE VIEW: 12/12/19 at 4:08 p.m. HISTORY: Diabetic ketoacidosis. COMPARISON: 11/12/18. The heart size is normal. The lungs are expanded without lobar consolidation, pneumothoraces, lexus p ulmonary edema, or pleural effusions. IMPRESSION: No radiographic evidence of acute cardiopulmonary process. POS: [facility]
[2019-12-12 16:49] LABS: Hemoglobin A1c 12.8 % (4.0-6.0)
--- NOTE | 2019-12-12 18:31 | HP ---
PRIMARY CARE PHYSICIAN: [facility] in [place]. CHIEF COMPLAINT: Blurry vision. HISTORY OF PRESENT ILLNESS: The patient is a 44-year-old male with a past medical history significant for AFib, resolved; cocaine, alcohol and tobacco abuse; cardiomyopathy with EF of 15% to 20%; chronic anemia, who presents to the ER for the above complaint. The patient reports for the past week the development of blurry vision. The patient denies any head trauma or headaches. He denies any focal deficits. The patient also had some associated polyuria and polydipsia. Denies any dysuria or discharge from penis. Denies any recent fever, chills or sore throat. For these reasons, he went to his PCP on Sunday. The PCP ordered general labs and prescribed Metformin, which the patient reports he has been taking as prescribed. Today, his PCP gave him a call regarding his lab results. Apparently, he had a blood sugar of 800, so he was instructed to go to the ER for further evaluation. The patient called EMS. When EMS arrived on the scene, spot glucose was 280. The patient was placed on insulin drip and given 6 units IV push of regular insulin and given 2 L of normal saline and brought to the [facility]. In the [facility], vital signs were normal, normal blood pressure, normal heart rate, normal respiratory rate, normal O2 saturation , and afebrile. VBG; pH was 7.25, CO2 was 98.1, bicarb was 22.8. The patient's gap was 21. Urine showed ketones greater than 80 and a glucose of 500. The patient was found to be in mild DKA, so he is transferred to the [facility] for further evaluation. In the [facility] [place] [facility], the patient has had a blood sugar check of 249. PAST MEDICAL HISTORY: 1. Cocaine abuse, alcohol, tobacco, and marijuana abuse. 2. Cardiomyopathy with an EF of 15% to 20%. 3. Chronic systolic heart failure. 4. Atrial fibrillation, resolved. 5. Chronic anemia. PAST SURGICAL HISTORY: No surgical history. SOCIAL HISTORY: The patient lives with his common-law spouse in [place]. He has a history of illicit drug use, cocaine, marijuana, and smoking. He reports that he quit smoking over 10 years ago and he has not used any illicit drugs in the past year. FAMILY HISTORY: Significant for his grandmother and dad, type 2 diabetics. ALLERGIES: NO KNOWN ALLERGIES. HOME MEDICATIONS: The patient is unable to confirm his home medications at this time number. REVIEW OF SYSTEMS: All review of systems are negative unless otherwise stated in HPI. PHYSICAL EXAMINATION: VITAL SIGNS: Temperature 98 Fahrenheit oral, blood pressure 145/85, heart rate 67, respirations 16, and sat 98% on room air. No pain 0/10. CONSTITUTIONAL: The patient is alert and oriented to person, place, and time. No acute distress. He appears comfortable. HEAD: Atraumatic and normocephalic. EYES: PERRLA. Extraocular muscles intact. ENT: Nares patent bilaterally. TMs intact bilaterally. Oropharynx is clear. Uvula midline. Moist mucous membranes. No oral lesions. NECK: Supple. Trachea midline. No JVD. No cervical adenopathy. No cervical tenderness. RESPIRATORY: Respirations are even and unlabored. No rhonchi, wheezes or rales auscultated. CARDIOVASCULAR: S1, S2. Regular rate and rhythm. No murmurs, rubs or gallops. ABDOMEN: Soft and nontender. Active bowel sounds. No guarding or rigidity. No rebound. No abdominal bruit auscultated. BACK: Full range of motion. No central spinous tenderness. No CVA tenderness. UPPER EXTREMITIES: Full range of motion. Strength normal. Sensation intact. Palpable radial pulses. LEGS/BILATERAL LOWER EXTREMITIES: Normal range of motion. Normal strength. Sensation intact. Palpable pedal pulses. No swelling. NEUROLOGIC: The patient is alert and oriented to person, place, and time. Cranial nerves 2 through 12 are intact. No focal deficits. Normal gait. PSYCHIATRIC: Normal affect. The patient is oriented to person, place, and time. LABS AND DIAGNOSTICS: VBG; pH was 7.25, CO2 98.1, bicarb 22.8, pO2 of 98. Sodium 136, potassium 4.3, chloride 103, carbon dioxide 16, BUN 18, creatinine 1.31, and blood glucose 264. UA, ketones greater than 80, glucose of 500. IMPRESSION AND PLAN: 1. Diabetic ketoacidosis, mild. We will admit the patient to medical floor inpatient status. Expected length of stay greater than 2 midnights. The patient reports 1 week of blurry vision with polyuria and polydipsia. Outpatient blood work showed a glucose of 800. For these reasons, the PCP instructed the patient to call EMS. On presentation to the ER, the patient's UA had ketones/glucose. He is mildly acidotic with a VBG pH of 7.25, was found have a blood glucose of 264. The patient's vital signs were stable. The patient has already received 2 L of normal saline along with insulin drip. On exam, the patient is in no acute distress. We will continue IV hydrations. We will add potassium. We will consult dietitian. We will start consistent carb diet. We will check a hemoglobin A1c, magnesium, and a phosphate level. We will recheck a BMP in 4 hours. We will add Accu-Cheks q.4 hours and moderate sliding scale, and we will continue to monitor I and Os. 2. Cardiomyopathy, most likely secondary to history of illicit drug abuse. The patient reports abusing cocaine, alcohol and marijuana in the past. Reports that he quit using illicit drugs in the past year. The patient had an echocardiogram and a catheterization approximately 1 year ago. that showed an EF of 15% to 20%. We will check a troponin, we will get a baseline EKG, and we will check a urine drug screen. Patient denies any chest pain or SOB. 3. Atrial fibrillation, resolved. The patient currently in normal sinus rhythm. The patient had a history of AFib with RVR a year ago, and he was admitted into the hospital. Supposedly, the patient takes aspirin and Eliquis. He is unable to confirm the dosages, but does confirm that he is taking "blood thinners." We will get nursing to confirm home medications and restart as appropriate. 4. Chronic anemia. The patient presented with a hemoglobin 13.5, hematocrit of 46.8, appear stable at this time. Check CBC in am. 5. Sequential compression devices for deep venous thrombosis prophylaxis. Pepcid for gastrointestinal prophylaxis. The patient is a full code. His MPOA is his common-law . Her name is Sofia Guadalupe, #[phone]. 6. Discussed the case with Dr. Lara. Job ID: [id number] MTDD
[2019-12-12] MEDS ORDERED: Magnesium Sulfate 4 GM in Sodium Chloride 0.9% 250 ML 250 ML IVPB SCH (21:00)
[2019-12-12] MEDS ORDERED: Famotidine 20 MG TAB PO SCH (21:00)
[2019-12-12] MEDS ORDERED: Potassium Phosphate 15 MMOL in Sodium Chloride 0.9% 250 ML 250 ML IVPB SCH (21:00)
[2019-12-12] MEDS: NS 0.9% w/ 20 MEQ KCL 1,000 ML/1,000 ML BAG IV SCH (22:29)
[2019-12-12] MEDS: Carvedilol 3.125 MG TAB PO SCH (22:29)
[2019-12-12 22:32] LABS: Anion Gap 13 mmol/L (10-20); BUN (Urea Nitrogen) 12 mg/dL (8.9-20.6); Calc. Creatinine Clearance 0 mL/min (70-130); Carbon Dioxide 21 mmol/L (22-29); Chloride 103 mmol/L (98-107); Estimated GFR-MDRD 78; Potassium 4.1 mmol/L (3.5-5.1); Sodium 133 mmol/L (136-145)
[2019-12-12 22:33] LABS: Calcium 8.4 mg/dL (7.8-10.44); Glucose 374 mg/dL (70-105)
[2019-12-12] MEDS: Insulin Regular 300 UNITS/3 ML VIAL SC PRN (22:51)
[2019-12-12 23:18] LABS: Amphetamine Not Detected (NotDetected); Barbiturates Screen Not Detected (NotDetected); Benzodiazepine Screen Not Detected (NotDetected); Cocaine Metabolite Screen Not Detected (NotDetected); Medtox Control Line Valid? VALID (VALID); Medtox Reader # READER 4; Methadone Not Detected (NotDetected); Methamphetamine Not Detected (NotDetected); Opiate Screen Not Detected (NotDetected); Oxycodone Screen Not Detected (NotDetected); Phencyclidine (PCP) Not Detected (NotDetected); THC/Cannabinoid Screen Not Detected (NotDetected); Tricyclic Screen Not Detected (NotDetected)
[2019-12-12 23:22] VITALS: BMI 33.0
[2019-12-13] MEDS: Insulin Regular 300 UNITS/3 ML VIAL SC PRN ×5 (02:19→20:42)
[2019-12-13] MEDS: NS 0.9% w/ 20 MEQ KCL 1,000 ML/1,000 ML BAG IV SCH ×3 (06:20→22:30)
[2019-12-13 07:29] LABS: ALT (SGPT) 12 U/L (8-55); AST (SGOT) 12 U/L (5-34); Albumin 3.7 g/dL (3.5-5.0); Alkaline Phosphatase 81 U/L (40-110); Anion Gap 11 mmol/L (10-20); BUN (Urea Nitrogen) 10 mg/dL (8.9-20.6); Bilirubin, Total 0.3 mg/dL (0.2-1.2); Calc. Creatinine Clearance 133 mL/min (70-130); Calcium 8.2 mg/dL (7.8-10.44); Carbon Dioxide 23 mmol/L (22-29); Chloride 107 mmol/L (98-107); Estimated GFR-MDRD Greater than 90; Globulin 2.8 g/dL (2.4-3.5); Glucose 220 mg/dL (70-105); Magnesium 2.2 mg/dL (1.6-2.6); Potassium 3.9 mmol/L (3.5-5.1); Protein, Total 6.5 g/dL (6.0-8.3); Sodium 137 mmol/L (136-145)
[2019-12-13 07:32] LABS: Phosphorus 2.5 mg/dL (2.3-4.7)
[2019-12-13] MEDS: Aspirin 81 mg Enteric Coated Tablet PO SCH (08:52)
[2019-12-13] MEDS: NPH, Human Insulin Isophane 300 UNIT/3 ML VIAL SC SCH (08:52)
[2019-12-13] MEDS: Carvedilol 3.125 MG TAB PO SCH ×2 (08:52→20:41)
--- NOTE | 2019-12-13 09:11 | PDOC.EVN ---
Event Note - Event Note Event Note: Patient seen and examined for DKA. c/o blurriness of vision with polydipsia and polyphagia. Feels gen weak. I agree with the note by TEST DRIVER including the A&P. Vitals signed reviewed.
[2019-12-13] MEDS ORDERED: Amiodarone 200 MG TAB PO SCH (09:15)
[2019-12-13] MEDS ORDERED: Apixaban 5 MG TAB PO SCH (09:15)
[2019-12-13] MEDS: metFORMIN 500 MG TAB PO SCH (17:06)
[2019-12-13] MEDS: glipiZIDE 5 MG TAB PO SCH (17:07)
--- NOTE | 2019-12-13 19:59 | PRG ---
DATE OF SERVICE: 12/13/2019 SUBJECTIVE: This 44-year-old male with cardiomyopathy, presented to the emergency room with blurriness of vision along with polydipsia and polyphagia. His workup was consistent with diabetic ketoacidosis. He was started on insulin drip, that was later transitioned to subcutaneous sliding scale. His symptoms have significantly improved. He denies any new complaints at this time. Polydipsia and polyuria have improved. CURRENT MEDICATIONS: Reviewed. REVIEW OF SYSTEMS: All other review of systems were reviewed and were found negative. OBJECTIVE: VITAL SIGNS: Temperature 97.8, pulse 62, respirations 17, blood pressure 113/62, and O2 saturation 97% on room air. GENERAL: This is a 44-year-old male, in no apparent distress. LUNGS: Clear to auscultation bilaterally. No wheezing, rales or rhonchi. HEART: S1 and S2 present, regular rate and rhythm. No rubs or gallops. ABDOMEN: Soft and nontender. Bowel sounds present. EXTREMITIES: No edema or calf tenderness. NEUROLOGIC: Grossly nonfocal. LABORATORY FINDINGS: Sodium 137, potassium 3.9, chloride 107, bicarb 23, BUN 10, and creatinine 1.01. LFTs in normal range. IMAGING STUDIES: Chest x-ray by my review was negative for infiltrate. IMPRESSION: 1. Diabetic ketoacidosis, improving. 2. Dehydration secondary to above. 3. Hypomagnesemia. 4. Hypophosphatemia. 5. Hyponatremia. 6. Paroxysmal atrial fibrillation. 7. History of cardiomyopathy, followed by Dr. Martinez. 8. Chronic anemia. 9. Chronic kidney disease, stage 2. 10. Obesity with a BMI of 33.1. PLAN: We will continue IV fluids today. We will add metformin and glipizide. Continue NPH twice a day. The patient was extensively counseled on diabetes mellitus type 2. The patient prefers to go home on oral hypoglycemics rather than subcutaneous insulin. We will probably try to discharge him in next 24 hours. He was also counseled by dietitian extensively. Job ID: [id number]
[2019-12-13] MEDS: Apixaban 5 MG TAB PO SCH (20:41)
[2019-12-13] MEDS ORDERED: NPH, Human Insulin Isophane 300 UNIT/3 ML VIAL SC SCH (21:00)
[2019-12-14] MEDS: Insulin Regular 300 UNITS/3 ML VIAL SC PRN (06:16)
[2019-12-14 08:00] VITALS: BP 111/70; TEMP 97.6
[2019-12-14] MEDS: glipiZIDE 5 MG TAB PO SCH (08:13)
[2019-12-14] MEDS: Aspirin 81 mg Enteric Coated Tablet PO SCH (08:13)
[2019-12-14] MEDS: metFORMIN 500 MG TAB PO SCH (08:13)
[2019-12-14] MEDS: Carvedilol 3.125 MG TAB PO SCH (08:13)
[2019-12-14] MEDS: Apixaban 5 MG TAB PO SCH (08:13)
[2019-12-14] MEDS: NPH, Human Insulin Isophane 300 UNIT/3 ML VIAL SC SCH (08:51)
[2019-12-14] MEDS ORDERED: Amiodarone 200 MG TAB PO SCH (09:00)
--- NOTE | 2019-12-14 09:54 | DIS ---
DATE OF ADMISSION: 12/12/2019 DATE OF DISCHARGE: 12/14/2019 DISCHARGE DISPOSITION: Home. FOLLOWUP: Follow up with [facility] in 1 week. The patient was advised to monitor blood sugars on a daily basis and to maintain a log. DISCHARGE MEDICATIONS: 1. Glipizide 5 mg b.i.d. 2. Metformin was increased to 1000 mg b.i.d. All other home medications were left unchanged. Please note, the patient declined insulin. The patient was seen and examined on the day of discharge. Denies any new complaints. No chest pain, shortness of breath, palpitations, nausea, or vomiting reported. Vital signs showed temperature 97.6, pulse of 68, respirations 18, blood pressure of 111/70 with O2 saturation 98% on room air. BRIEF HOSPITAL COURSE: The patient is a 44-year-old male, who presented to the emergency room at [facility] with elevated blood sugar. He was started on metformin 2 days prior to admission. He was found to have elevated blood sugars with diabetic ketoacidosis. His VBG showed pH of 7.25 with pCO2 of 51.6, pO2 of 98.1 with bicarbonate of 16 on admission. He was started on insulin drip that was transitioned to subcu insulin. He also had mild acute kidney injury with creatinine 1.3 on admission that improved. His A1c was 12.8. He was extensively counseled on diabetes. He was also educated by the dietitian on dietary modification. He was started on glipizide and metformin yesterday. His blood sugar this morning was 186. Please note, NPH 10 units daily was offered, however, the patient declined insulin. He prefers to stay on oral hypoglycemics. He will benefit from a repeat basic metabolic profile after 1 week. He understands the consequences of refusing insulin, not limited to severe hyperglycemia and diabetic ketoacidosis. FINAL DIAGNOSES: 1. Diabetic ketoacidosis, resolved. 2. Uncontrolled diabetes mellitus type 2. 3. Dehydration with acute kidney injury, present on admission. 4. Chronic kidney disease stage 2. 5. Hypomagnesemia, replaced. 6. Hypophosphatemia, replaced. 7. Hyponatremia. 8. Paroxysmal atrial fibrillation, on anticoagulation. 9. History of cardiomyopathy, followed by Dr. Martinez. 10. Chronic anemia. 11. Obesity with a BMI of 33.1. Lifestyle modification was emphasized. Job ID: [id number]
== END 2019-12-14 11:10 | disposition home or self-care (01) | DRG 638 ==
LOC: ERS 15:23 → T4-B 16:23
PROVIDERS: ADMIT Internal Medicine; ATTEND Internal Medicine
DX: E11.10 Type 2 diabetes mellitus with ketoacidosis without coma (principal); N17.9 Acute kidney failure, unspecified; E87.1 Hypo-osmolality and hyponatremia; I50.22 Chronic systolic (congestive) heart failure; I42.9 Cardiomyopathy, unspecified; E86.0 Dehydration; N18.2 Chronic kidney disease, stage 2 (mild); E11.22 Type 2 diabetes mellitus with diabetic chronic kidney disease; E83.42 Hypomagnesemia; E83.39 Other disorders of phosphorus metabolism; I48.0 Paroxysmal atrial fibrillation; D63.1 Anemia in chronic kidney disease; E66.9 Obesity, unspecified; Z68.33 Body mass index [BMI] 33.0-33.9, adult; Z79.84 Long term (current) use of oral hypoglycemic drugs; Z87.891 Personal history of nicotine dependence
CPT/HCPCS: 36415; 36416; 71045; 80053; 80306; 83036; 83735; 84100; 84484; 93005; 96360; 96361; J1815; J3475; J3480; J7050